=== PATIENT | female | born 1960 | race Hispanic/Latino ===

== ENCOUNTER 2018-06-24 17:57 | Inpatient (IN) | payer OTHER, SELFPAY ==
--- NOTE | 2018-06-24 19:49 | RAD REPORT ---
EXAM DESCRIPTION: US - Abdomen Exam Limited - 06/24/2018 7:24 pm CLINICAL HISTORY: Abdominal pain. COMPARISON: None. FINDINGS: Multiple gallstones. Gallbladder wall mildly thickened The biliary tree is normal caliber. IMPRESSION: Cholelithiasis. Mild gallbladder wall thickening may indicate cholecystitis
[2018-06-24] MEDS ORDERED: ONDANSETRON 4 MG/2 ML VIAL ONE (21:58)
[2018-06-24 22:04] LABS: Absolute Lymphocytes (CBC) 1.7 K/uL (0.7-4.9); Absolute Monocytes 0.4 K/uL (0.1-1.3); Absolute Neutrophil 5.3 K/uL (1.8-8.0); Basophils % 0.7 % (0-1.3); Eosinophils % 0.5 % (0-4.4); Hematocrit 37.5 % (36.0-45.0); Lymphocytes % 22.8 % (15.3-44.8); MPV 8.4 fL (7.6-11.3); RBC Red Blood Cell Count 3.95 M/uL (3.86-4.86)
[2018-06-24 22:11] LABS: Protime INR 1.17
[2018-06-24] MEDS ORDERED: MORPHINE 2 MG/ML SYR ONE (22:23)
[2018-06-24 22:32] LABS: ALT/SGPT 218 U/L (12-78); AST/SGOT 211 U/L (15-37); Albumin 3.9 g/dL (3.4-5.0); Alkaline Phosphatase 347 U/L (45-117); BUN Blood Urea Nitrogen 14 mg/dL (7-18); Bicarbonate 30 mmol/L (21-32); Bilirubin Direct 0.8 mg/dL (0-0.2); Bilirubin Total 1.6 mg/dL (0.2-1.0); Glucose Level 94 mg/dL (74-106); Lipase 2287 U/L (73-393); Magnesium 2.5 mg/dL (1.8-2.4); NT PRO-BNP 27 pg/mL (<125); Potassium 3.6 mmol/L (3.5-5.1); Protein, Total 8.3 g/dL (6.4-8.2); Sodium Level 140 mmol/L (136-145); Troponin (Emerg Dept Use Only) < 0.02 ng/mL (0.0-0.045)
[2018-06-24] MEDS ORDERED: CEFTRIAXONE/SWI 1gm 1 GM/10 ML SYR ONE (23:16)
[2018-06-24] MEDS ORDERED: NA CHLORIDE 0.9% 2,000 ML ONE (23:17)
[2018-06-24] MEDS ORDERED: MORPHINE 4 MG/ML SYR ONE (23:25)
--- NOTE | 2018-06-24 23:43 | EDPHYS ---
Physician Documentation [facility] Name: Quiana Valverde Age: 58 yrs Sex: Female : 1960 Arrival Date: 06/24/2018 Time: 18:01 Bed 27 Private MD: None, None ED Physician Luico Urbina HPI: 06/24 21:45 This 58 yrs old Female presents to ER via Ambulatory with complaints of Chest cp Pain, Abdominal Pain. 21:45 The patient presents with abdominal pain in the epigastric area, in the upper abdomen. cp 21:45 Onset: The symptoms/episode began/occurred 2 day(s) ago. cp 21:45 The symptoms radiate to back and chest. The symptoms are described as sharp, cp waxing/waning. Modifying factors: the symptoms are aggravated by food, pressure. Severity of pain: in the emergency department the pain is unchanged despite home interventions. 21:45 Associated signs and symptoms: Pertinent positives: anorexia, chest pain, nausea, cp vomiting, Pertinent negatives: blood in stools, constipation, diarrhea, dysuria, fever. Historical: - Allergies: 18:22 No Known Allergies; aa5 - Home Meds: 18:22 omeprazole 40 mg Oral cpDR 1 cap once daily [Active]; aa5 - PMHx: 18:22 None; aa5 - PSHx: 18:21 Tubal ligation; Hysterectomy; Bladder suspension; aa5 - Immunization history:: Flu vaccine is not up to date. - Social history:: Smoking status: Patient/guardian denies using tobacco. - Ebola Screening: : No symptoms or risks identified at this time. ROS: 21:50 Constitutional: Negative for body aches, chills, fever, poor PO intake. cp 21:50 Eyes: Negative for injury, pain, redness, and discharge. cp 21:50 Cardiovascular: Positive for chest pain, Negative for edema, palpitations. 21:50 Respiratory: Positive for shortness of breath, Negative for cough, wheezing. 21:50 Abdomen/GI: Positive for abdominal pain, nausea, Negative for diarrhea, constipation, black/tarry stool, rectal bleeding, active vomiting. 21:50 Back: Positive for radiated pain. 21:50 : Negative for urinary symptoms. 21:50 Skin: Negative for cellulitis, rash. 21:50 Neuro: Negative for altered mental status, headache, weakness. 21:50 All other systems are negative. Exam: 22:00 Constitutional: The patient appears in no acute distress, alert, awake, cp non-diaphoretic, non-toxic, well developed, well nourished, obese. 22:00 Head/Face: Normocephalic, atraumatic. Eyes: Pupils equal round and reactive to light, cp extra-ocular motions intact. Lids and lashes normal. Conjunctiva and sclera are non-icteric and not injected. Cornea within normal limits. Periorbital areas with no swelling, redness, or edema. ENT: Nares patent. No nasal discharge, no septal abnormalities noted. Tympanic membranes are normal and external auditory canals are clear. Oropharynx with no redness, swelling, or masses, exudates, or evidence of obstruction, uvula midline. Mucous membranes moist. Chest/axilla: Normal chest wall appearance and motion. Nontender with no deformity. No lesions are appreciated. Cardiovascular: Regular rate and rhythm with a normal S1 and S2. No gallops, murmurs, or rubs. Normal PMI, no JVD. No pulse deficits. Respiratory: Lungs have equal breath sounds bilaterally, clear to auscultation and percussion. No rales, rhonchi or wheezes noted. No increased work of breathing, no retractions or nasal flaring. 22:00 Abdomen/GI: Inspection: abdomen appears normal, Bowel sounds: active, all quadrants, Palpation: soft, in all quadrants, moderate abdominal tenderness, in the epigastric area and right upper quadrant, rebound tenderness, is not appreciated, voluntary guarding, is elicited in the epigastric area and right upper quadrant, involuntary guarding, is not appreciated. 22:00 Back: pain, that is moderate, of the mid back area, ROM is normal. 22:00 Skin: no rash present. Vital Signs: 18:22 BP 126 / 67; Pulse 80; Resp 18 S; Temp 98.1(TE); Pulse Ox 98% on R/A; Weight 88.45 kg aa5 (R); Height 5 ft. 1 in. (154.94 cm) (R); Pain 10/10; 21:30 BP 152 / 87 LA; Pulse 79; Resp 17 S; Pulse Ox 100% on R/A; rv 22:00 BP 139 / 77 LA; Pulse 78; Resp 15 S; Pulse Ox 100% on R/A; rv 22:30 BP 138 / 75 RA; Pulse 68; Resp 16 S; Pulse Ox 100% on R/A; rv 23:00 BP 152 / 69 RA; Pulse 78; Resp 17 S; Pulse Ox 100% on R/A; rv 06/25 00:00 BP 153 / 96 RA; Pulse 69; Resp 16 S; Pulse Ox 100% on R/A; rv 00:30 BP 146 / 76 RA; Pulse 65; Resp 16 S; Pulse Ox 100% on R/A; rv 06/24 18:22 Body Mass Index 36.84 (88.45 kg, 154.94 cm) aa5 MDM: 06/24 21:31 Patient medically screened. cp 22:00 Differential diagnosis: cholecystitis, Cholelithiasis, diverticulitis, gastritis, cp gastroesophageal reflux disease, pancreatitis, Peptic Ulcer Disease, Perf. Duodenal Ulcer, Perf. Gastric Ulcer, Pyelonephritis. 23:15 Data reviewed: vital signs, nurses notes, lab test result(s), EKG, radiologic studies, cp plain films, ultrasound, and as a result, I will admit patient. 23:15 Test interpretation: by ED physician or midlevel provider: ECG, plain radiologic cp studies. 23:16 Physician consultation: Lucio Peguero MD was called at 23:16, was contacted at 23:16, regarding consult, patient's condition, and will see patient tomorrow. 23:45 Physician consultation: Mitzi Danielson MD regarding admission, to the medical/surgical cp unit. patient's condition. 06/24 21:40 Order name: Basic Metabolic Panel; Complete Time: 22:45 cp 06/24 22:45 Interpretation: Normal except: GFR 71. cp 06/24 21:40 Order name: CBC with Diff; Complete Time: 22:45 cp 06/24 22:46 Interpretation: Reviewed. cp 06/24 21:40 Order name: LFT's; Complete Time: 22:45 cp 06/24 22:45 Interpretation: Normal except: AST 211; ALT 218; ALK 347; BILIT 1.6; BILID 0.8; TP 8.3; cp GLOB 4.4; A/G 0.9. 06/24 21:40 Order name: Magnesium; Complete Time: 22:45 cp 06/24 21:40 Order name: NT PRO-BNP; Complete Time: 22:45 cp 06/24 21:40 Order name: PT-INR; Complete Time: 22:45 cp 06/24 23:32 Interpretation: PT 13.7; Reviewed. cp 06/24 19:03 Order name: US Abdomen Limited; Complete Time: 21:31 snw 06/24 21:40 Order name: Troponin (emerg Dept Use Only); Complete Time: 22:45 cp 06/24 21:40 Order name: XRAY Chest (1 view) cp 06/24 21:40 Order name: Lipase; Complete Time: 22:45 cp 06/24 22:46 Interpretation: Abnormal: LIP 2287. cp 06/24 21:53 Order name: CT Abd/Pelvis - W/Contrast: no oral contrast cp 06/24 19:03 Order name: EKG; Complete Time: 19:04 snw 06/24 19:03 Order name: EKG - Nurse/Tech; Complete Time: 21:33 snw 06/24 21:40 Order name: Cardiac monitoring; Complete Time: 22:01 cp 06/24 21:40 Order name: IV Saline Lock; Complete Time: 22:00 cp 06/24 21:40 Order name: Labs collected and sent; Complete Time: 22:00 cp 06/24 21:40 Order name: O2 Per Protocol; Complete Time: 22:00 cp 06/24 21:40 Order name: O2 Sat Monitoring; Complete Time: 22:01 cp 06/25 00:48 Order name: NPO; Complete Time: 00:54 cp Administered Medications: 22:14 Drug: morphine 2 mg Route: IVP; Site: left antecubital; rv 22:39 Follow up: Response: Pain is decreased rv 22:15 Drug: Zofran 4 mg Route: IVP; Site: left antecubital; rv 22:39 Follow up: Response: Nausea is decreased rv 23:09 Drug: Rocephin - (cefTRIAXone) 1 grams Route: IVPB; Infused Over: 30 mins; Site: left rv antecubital; 06/25 00:55 Follow up: IV Status: Completed infusion rv 06/24 23:09 Drug: NS 0.9% 1000 ml Route: IV; Rate: 1 bolus; Site: left antecubital; rv 06/25 00:54 Follow up: IV Status: Completed infusion rv 06/24 23:30 Drug: morphine 4 mg Route: IVP; Site: left antecubital; rv 04 00:56 Follow up: Response: Pain is decreased rv 00:00 Drug: metroNIDAZOLE 500 mg Volume: 100 ml; Route: IVPB; Infused Over: 30 mins; Site: rv left antecubital; 00:57 Follow up: IV Status: Infusion continued upon admission rv 00:54 Drug: NS 0.9% 1000 ml Route: IV; Rate: 125 ml/hr; Site: left antecubital; rv 00:56 Follow up: IV Status: Infusion continued upon admission rv 01:01 Drug: Cipro 400 mg Volume: 200 ml; Route: IVPB; Infused Over: 60 mins; Site: left rv antecubital; 01:02 Follow up: IV Status: Infusion continued upon admission rv Disposition: 06/24/18 23:43 Hospitalization ordered by Mitzi Danielson for Inpatient Admission. Preliminary diagnosis are Cholecystitis, Acute pancreatitis. - Bed requested for Telemetry/MedSurg (Inpatient). - Status is Inpatient Admission. rv - Condition is Stable. - Problem is new. - Symptoms have improved. UTI on Admission? No Addendum: 06/26/2018 11:40 Co-signature as Attending Physician, Lucio Urbina MD I agree with the assessment and w a plan of care. Signatures: Dispatcher [employer] EDMS Karime Lizarraga, PEARL-C TECHNICAL PRODUCT MANAGER-Csnw Lis Jaramillo RN RN aa5 Jarad Ernandez PA PA Prema Salazar RN RN Lucio Urbina MD MD nc Bart Howard RN RN rv Corrections: (The following items were deleted from the chart) 06/25 00:24 04 23:43 Hospitalization Ordered by Mitzi Danielson MD for Inpatient Admission. cg Preliminary diagnosis is Cholecystitis; Acute pancreatitis. Bed requested for Telemetry/MedSurg (Inpatient). Status is Inpatient Admission. Condition is Stable. Problem is new. Symptoms have improved. UTI on Admission? No. cp 06/25 01:04 00:24 06/24/2018 23:43 Hospitalization Ordered by Mitzi Danielson MD for Inpatient rv Admission. Preliminary diagnosis is Cholecystitis; Acute pancreatitis. Bed requested for Telemetry/MedSurg (Inpatient). Status is Inpatient Admission. Condition is Stable. Problem is new. Symptoms have improved. UTI on Admission? No. cg 22:59 06/24 21:45 Associated signs and symptoms: Pertinent positives: anorexia, nausea, cp Pertinent negatives: blood in stools, diarrhea, dysuria, fever, vomiting, cp
--- NOTE | 2018-06-24 23:43 | ER ---
Nurse's Notes [facility] Name: Quiana Valverde Age: 58 yrs Sex: Female : 1960 Arrival Date: 06/24/2018 Time: 18:01 Bed 27 Private MD: None, None Diagnosis: Cholecystitis;Acute pancreatitis Presentation: 06/24 18:20 Presenting complaint: Patient states: upper abd pain and chest pain that began on aa5 Friday, pt reports pain has been constant. Reports intermittent SOB. Denies nausea, reports vomiting. Transition of care: patient was not received from another setting of care. Onset of symptoms was June 2018. Risk Assessment: Do you want to hurt yourself or someone else? Patient reports no desire to harm self or others. Initial Sepsis Screen: Does the patient meet any 2 criteria? No. Patient's initial sepsis screen is negative. Does the patient have a suspected source of infection? No. Patient's initial sepsis screen is negative. Care prior to arrival: None. 18:20 Method Of Arrival: Ambulatory aa5 18:20 Acuity: PASTORA 3 aa5 Historical: - Allergies: 18:22 No Known Allergies; aa5 - Home Meds: 18:22 omeprazole 40 mg Oral cpDR 1 cap once daily [Active]; aa5 - PMHx: 18:22 None; aa5 - PSHx: 18:21 Tubal ligation; Hysterectomy; Bladder suspension; aa5 - Immunization history:: Flu vaccine is not up to date. - Social history:: Smoking status: Patient/guardian denies using tobacco. - Ebola Screening: : No symptoms or risks identified at this time. Screenin:03 Abuse screen: Denies threats or abuse. Denies injuries from another. Nutritional rv screening: No deficits noted. Tuberculosis screening: No symptoms or risk factors identified. Fall Risk None identified. Assessment: 22:02 General: Appears in no apparent distress. uncomfortable, Behavior is calm, cooperative. rv Pain: Complains of pain in abdomen Pain does not radiate. Pain began 1 day ago. Neuro: Level of Consciousness is awake, alert, obeys commands, Oriented to person, place, time, situation. Cardiovascular: Capillary refill < 3 seconds. Respiratory: Airway is patent. GI: Reports lower abdominal pain. : No signs and/or symptoms were reported regarding the genitourinary system. EENT: No signs and/or symptoms were reported regarding the EENT system. Derm: Skin is intact. Musculoskeletal: No signs and/or symptoms reported regarding the musculoskeletal system. 22:40 Reassessment: Patient appears in no apparent distress at this time. Patient and/or rv family updated on plan of care and expected duration. Pain level reassessed. Patient is alert, oriented x 3, equal unlabored respirations, skin warm/dry/pink. Patient states feeling better. Patient states symptoms have improved. Vital Signs: 18:22 BP 126 / 67; Pulse 80; Resp 18 S; Temp 98.1(TE); Pulse Ox 98% on R/A; Weight 88.45 kg aa5 (R); Height 5 ft. 1 in. (154.94 cm) (R); Pain 10/10; 21:30 BP 152 / 87 LA; Pulse 79; Resp 17 S; Pulse Ox 100% on R/A; rv 22:00 BP 139 / 77 LA; Pulse 78; Resp 15 S; Pulse Ox 100% on R/A; rv 22:30 BP 138 / 75 RA; Pulse 68; Resp 16 S; Pulse Ox 100% on R/A; rv 23:00 BP 152 / 69 RA; Pulse 78; Resp 17 S; Pulse Ox 100% on R/A; rv 0404 00:00 BP 153 / 96 RA; Pulse 69; Resp 16 S; Pulse Ox 100% on R/A; rv 00:30 BP 146 / 76 RA; Pulse 65; Resp 16 S; Pulse Ox 100% on R/A; rv 0403 18:22 Body Mass Index 36.84 (88.45 kg, 154.94 cm) aa5 ED Course: 03 18:01 Patient arrived in ED. mr 18:01 None, None is Private Physician. mr 18:20 Triage completed. aa5 18:20 Arm band placed on. aa5 18:29 EKG done, by ED staff, reviewed by Jarad ROMAN. jp3 19:24 US Abdomen Limited In Process Unspecified. EDMS 19:31 Ultrasound completed. Patient tolerated well. cy 19:31 Patient moved back from ultrasound. cy 21:30 Warm blanket given. Pulse ox on. NIBP on. jp3 21:30 Bed in low position. Call light in reach. Side rails up X 1. Side rails up X2. jp3 21:31 [facility] Ernandez [facility]. cp 21:31 Lucio Urbina MD is Attending Physician. cp 21:50 Inserted saline lock: 22 gauge in left antecubital area, using aseptic technique. Blood jp3 collected. 21:50 Initial lab(s) drawn, by me, sent to lab. jp3 21:58 Radiology exam delayed due to lab results not completed at this time. (BUN/Creatinine) nj IV insertion attempt and/or patient not having appropriate IV at this time. 22:00 Lipase Sent. jp3 22:00 Basic Metabolic Panel Sent. jp3 22:00 CBC with Diff Sent. jp3 22:00 LFT's Sent. jp3 22:00 Magnesium Sent. jp3 22:00 NT PRO-BNP Sent. jp3 22:00 PT-INR Sent. jp3 22:00 Troponin (emerg Dept Use Only) Sent. jp3 22:03 Patient maintains SpO2 saturation greater than 95% on room air. rv 22:12 X-ray completed. Portable x-ray completed in exam room. Patient tolerated procedure az well. 22:12 Radiology exam delayed due to lab results not completed at this time. (BUN/Creatinine). vm2 22:14 XRAY Chest (1 view) In Process Unspecified. EDMS 22:55 CT completed. Patient tolerated procedure well. Patient moved to CT via wheelchair. nm Patient moved back from CT. 23:06 CT Abd/Pelvis - W/Contrast: no oral contrast In Process Unspecified. EDMS 23:42 Mitzi Danielson MD is Hospitalizing Provider. 06/25 01:00 No provider procedures requiring assistance completed. Patient admitted, IV remains in rv place. intact. Administered Medications: 06/24 22:14 Drug: morphine 2 mg Route: IVP; Site: left antecubital; rv 22:39 Follow up: Response: Pain is decreased rv 22:15 Drug: Zofran 4 mg Route: IVP; Site: left antecubital; rv 22:39 Follow up: Response: Nausea is decreased rv 23:09 Drug: Rocephin - (cefTRIAXone) 1 grams Route: IVPB; Infused Over: 30 mins; Site: left rv antecubital; 06/25 00:55 Follow up: IV Status: Completed infusion rv 06/24 23:09 Drug: NS 0.9% 1000 ml Route: IV; Rate: 1 bolus; Site: left antecubital; rv 06/25 00:54 Follow up: IV Status: Completed infusion rv 06/24 23:30 Drug: morphine 4 mg Route: IVP; Site: left antecubital; rv 06/25 00:56 Follow up: Response: Pain is decreased rv 00:00 Drug: metroNIDAZOLE 500 mg Volume: 100 ml; Route: IVPB; Infused Over: 30 mins; Site: rv left antecubital; 00:57 Follow up: IV Status: Infusion continued upon admission rv 00:54 Drug: NS 0.9% 1000 ml Route: IV; Rate: 125 ml/hr; Site: left antecubital; rv 00:56 Follow up: IV Status: Infusion continued upon admission rv 01:01 Drug: Cipro 400 mg Volume: 200 ml; Route: IVPB; Infused Over: 60 mins; Site: left rv antecubital; 01:02 Follow up: IV Status: Infusion continued upon admission rv Outcome: 06/24 23:43 Decision to Hospitalize by Provider. cp 06/25 01:01 Admitted to Tele accompanied by nurse, via wheelchair, room 405, Report called to rv crystal Condition: good Instructed on the need for admit. 01:04 Patient left the ED. rv Signatures: Dispatcher [employer] Helena Altamirano JaramilloLis moreno, RN RN aa5 Jarad Ernandez PA PA Sriram Santoyo Victoria Jose M Austin Ronaldo, RN RN rv Tao Bedoya jp3 Roxanne Rosenberg
[2018-06-25] MEDS ORDERED: CIPROFLOXACIN 400mg IV 400 MG/200 ML BAG IV ONE (00:03)
[2018-06-25] MEDS ORDERED: METRONIDAZOLE 500mg IVPB 500 MG/100 ML BAG IV ONE (00:04)
--- NOTE | 2018-06-25 00:17 | P.HP ---
Certification for Inpatient Patient admitted to: Inpatient With expected LOS: >2 Midnights Practitioner: I am a practitioner with admitting privileges, knowledge of patient current condition, hospital course, and medical plan of care. Services: Services provided to patient in accordance with Admission requirements found in Title 42 Section 412.3 of the Code of Federal Regulations Patient History Date of Service: 06/25/18 Reason for admission: gallstone cholecystitis, pancreatitis History of Present Illness: Ms Valverde is a 58 years old woman with history of of GERD, known to have cholelithiasis who start with abdominal pain 3 days ago. She describe the pain as constant, epigastric radiated to RUQ, LUQ and chest. She has had vomiting as well. No diarrhea, fever or chills. Lab work remarkable for abnormal liver enzymes, elevated bilirubin, lipase and alk phos. WBC count normal. Abdominal US shows multiple gallstones with signs of cholecystitis, ducts with normal caliber. CT abd/pelvis pending report. Allergies No Known Drug Allergies Allergy (Verified 03/14/16 11:15) Unknown No Known Allergies Allergy (Uncoded 08/16/16 20:28) Unknown Home medications list reviewed: Yes Home Medications: Codeine/APAP [Tylenol W/Codeine #3 tab] 1 tab PO Q6HP PRN #20 tab 03/15/16 - Past Medical/Surgical History Diabetic: No -: GERD -: Cholelitiasis -: tubal ligation 1991 -: hysterectomy -: bladder suspension - Family History Mother -: Hypertension, Diabetes, Stroke, Kidney disease - Social History Smoking Status: Never smoker Alcohol use: No CD- Drugs: No Caffeine use: Yes Place of Residence: Home Review of Systems 10-point ROS is otherwise unremarkable Physical Examination - Physical Exam General: Alert, In no apparent distress HEENT: Atraumatic, PERRLA, Mucous membr. moist/pink, EOMI, Sclerae nonicteric Neck: Supple, 2+ carotid pulse no bruit, No LAD, Without JVD or thyroid abnormality Respiratory: Clear to auscultation bilaterally, Normal air movement Cardiovascular: Regular rate/rhythm, Normal S1 S2 Gastrointestinal: Normal bowel sounds, Tenderness (RUQ tenderness to palpation) Musculoskeletal: No tenderness Integumentary: No rashes Neurological: Normal speech, Normal strength at 5/5 x4 extr, Normal tone, Normal affect Lymphatics: No axilla or inguinal lymphadenopathy - Studies Laboratory Data (last 24 hrs) 06/24/18 21:50: PT 13.7 H, INR 1.17 06/24/18 21:50: WBC 7.4, Hgb 12.6, Hct 37.5, Plt Count 248 06/24/18 21:50: Sodium 140, Potassium 3.6, BUN 14, Creatinine 0.83, Glucose 94, Magnesium 2.5 H, Total Bilirubin 1.6 H, AST 211 H, ALT 218 H, Alkaline Phosphatase 347 H, Lipase 2287 H Assessment and Plan - Problems (Diagnosis) (1) Cholecystitis Current Visit: Yes Status: Acute (2) Cholelithiasis Current Visit: Yes Status: Acute Qualifiers: Cholelithiasis location: gallbladder Cholecystitis acuity: acute Biliary obstruction: without biliary obstruction (3) Pancreatitis Current Visit: Yes Status: Acute Qualifiers: Chronicity: acute Pancreatitis type: biliary Acute pancreatitis complication: unspecified Qualified Code(s): K85.10 - Biliary acute pancreatitis without necrosis or infection - Plan Will admit the patient due to gallstone collecystitis, pancreatitis. Will start empiric antibiotic treatment, Keep NPO, IV fluids, symptomatic medication for pain, consult surgery and GI team. - Advance Directives Does patient have a Living Will: No Does patient have a Durable POA for Healthcare: No - Code Status/Comfort Care Code Status Assessed: Yes Code Status: Full Code
[2018-06-25] MEDS ORDERED: METRONIDAZOLE 500mg IVPB 500 MG/100 ML BAG IV SCH (01:10)
[2018-06-25] MEDS ORDERED: SODIUM CHLORIDE 0.9% 10ML INJ IV PRN (01:10)
[2018-06-25] MEDS ORDERED: ACETAMINOPHEN 500 MG TAB PO PRN (01:10)
[2018-06-25 01:31] VITALS: BMI 34.9
[2018-06-25] MEDS: NA CHLORIDE 0.9% 1,000 ML IV SCH ×3 (02:22→20:04)
[2018-06-25 03:34] LABS: Urine Appearance CLEAR; Urine Bilirubin NEGATIVE (NEG); Urine Blood TRACE (NEG); Urine Color DK YELLOW; Urine Glucose NEGATIVE (NEG); Urine Protein NEGATIVE (NEG); Urine Specific Gravity >=1.030 (1.005-1.030); Urine Urobilinogen 0.2 mg/dL (0.2-1.0)
[2018-06-25 03:39] LABS: Urine Microscopic Reflex ORDER UMIC
[2018-06-25] MEDS: ONDANSETRON 4 MG/2 ML VIAL IV PRN ×3 (03:50→18:49)
[2018-06-25] MEDS: KETOROLAC 30 MG/ML INJ IV PRN ×3 (03:50→20:05)
[2018-06-25 05:01] LABS: Urine Bacteria <20 /HPF (<20); Urine Culture Reflex Order NOT NEEDED; Urine RBC <5 /HPF (NONE SEEN)
[2018-06-25] MEDS ORDERED: KCL 20 MEQ/100 mL IVPB 20 MEQ/100 ML BAG IV SCH (06:00)
--- NOTE | 2018-06-25 08:25 | RAD REPORT ---
EXAM DESCRIPTION: RAD - Chest Single View - 06/24/2018 10:14 pm CLINICAL HISTORY: Abdominal pain, chest pain COMPARISON: July 2016 TECHNIQUE: AP portable chest image was obtained 2211 hours . FINDINGS: Lungs are clear. Heart and vasculature are normal. No measurable pleural effusion and no p neumothorax. No acute bony abnormality seen. No acute aortic findings suspected. IMPRESSION: No acute cardiopulmonary process. No significant interval change.
[2018-06-25] MEDS: METRONIDAZOLE 500mg IVPB 500 MG/100 ML BAG IV SCH ×3 (09:47→23:21)
[2018-06-25] MEDS: PANTOPRAZOLE 40 MG INJ IVP SCH (09:47)
--- NOTE | 2018-06-25 10:55 | RAD REPORT ---
EXAM DESCRIPTION: CT - Abdomen Pelvis W Contrast - 06/25/2018 5:34 am CLINICAL HISTORY: 58 years Female, ABD PAIN COMPARISON: None. TECHNIQUE: 5 mm axial images of the abdomen and pelvis were obtained with intravenous contrast. 3 mm coronal and sagittal reformatted images were obtained. This exam was performed according to our depa mental dose-optimization program, which includes automated exposure control, adjustment of the mA a nd/or kV according to patient size and/or use of iterative reconstruction technique. INTRAVENOUS CONTRAST: Not documented. Please refer to medical record. FINDINGS: Lung bases: There are no active infiltrates. There is a small sliding-type hiatal hernia. Liver: There is diffuse fatty liver infiltration.. Spleen: Normal. Pancreas: Normal. Gallbladder: There is mild gallbladder distention with evidence of cholelithiasis. There is mild wall thickening and pericholecystic fluid.. A gallbladder ultrasound recommended to assess for potential cholecystitis. Right adrenal gland: Normal. Left adrenal gland: Normal. Right kidney: Normal. Left kidney: There is a parapelvic cyst in the lower pole measuring 3.5 x 1.5 cm. There is mild uroth elial enhancement within the at the UPJ. Findings raise a possibility of urinary tract infection. Retroperitoneal structures: Normal. Bowel survey: There is mild gaseous distention of the transverse colon and multiple small bowel loops suggestive of a mild generalized ileus. The appendix is unremarkable. The distal ileum is unremarkab le. Urinary bladder: Normal. Uterus and adnexa: Absent.. Peritoneal cavity: There is a very small amount of free fluid in the posterior pelvic cul-de-sac. Mesentery structures: Normal. Abdominal wall: There is a tiny umbilical hernia containing fat. There is a tiny midline ventral meryl ia raising 2.5 cm inferior to the umbilicus containing fat.. Bony structures: No suspicious lesions. IMPRESSION: 1. Questionable cholecystitis. Gallbladder ultrasound recommended. 2. Mild generalized ileus. 3. Questionable urinary tract infection in the left UPJ. 4. Small hiatal hernia. 5. Diffuse fatty liver infiltration. Electronically signed by: Molina Mchugh MD 06/24/2018 11:23 PM CDT Due to temporary technical issues with the PACS/Fluency reporting system, reports are being signed by the in house radiologist as a courtesy to ensure prompt reporting. The interpreting radiologist is f ully responsible for the content of the report.
[2018-06-25] MEDS: CIPROFLOXACIN 400mg IV 400 MG/200 ML BAG IV SCH ×2 (12:37→23:20)
[2018-06-25 12:49] LABS: ALT/SGPT 135 U/L (12-78); AST/SGOT 95 U/L (15-37); Alkaline Phosphatase 262 U/L (45-117); BUN Blood Urea Nitrogen 13 mg/dL (7-18); Bicarbonate 29 mmol/L (21-32); Bilirubin Total 0.9 mg/dL (0.2-1.0); Glucose Level 80 mg/dL (74-106); Lipase 219 U/L (73-393); Magnesium 2.2 mg/dL (1.8-2.4); Potassium 4.2 mmol/L (3.5-5.1); Protein, Total 6.7 g/dL (6.4-8.2); Sodium Level 142 mmol/L (136-145)
--- NOTE | 2018-06-25 12:53 | P.PN ---
Subjective Date of Service: 06/25/18 Primary Care Provider: Dr. Power Chief Complaint: gallstone cholecystitis, pancreatitis Subjective: Other (Abdominal pain improved.) Physical Examination - Vital Signs Temperature: 97.1 F Blood Pressure: 116/53 Pulse: 59 Respirations: 18 Pulse Ox (%): 99 - Physical Exam General: Alert, In no apparent distress, Oriented x3, Cooperative HEENT: Atraumatic Neck: Supple Respiratory: Clear to auscultation bilaterally, Normal air movement Cardiovascular: Normal pulses, Regular rate/rhythm Gastrointestinal: Normal bowel sounds, Soft and benign, Non-distended, Tenderness (Improved pain to the right upper quadrant) Neurological: Normal speech, Normal strength at 5/5 x4 extr, Normal tone, Normal affect - Studies Laboratory Data (last 24 hrs) 06/24/18 21:50: PT 13.7 H, INR 1.17 06/24/18 21:50: WBC 7.4, Hgb 12.6, Hct 37.5, Plt Count 248 06/24/18 21:50: Sodium 140, Potassium 3.6, BUN 14, Creatinine 0.83, Glucose 94, Magnesium 2.5 H, Total Bilirubin 1.6 H, AST 211 H, ALT 218 H, Alkaline Phosphatase 347 H, Lipase 2287 H Medications List Reviewed: Yes Assessment & Plan Discharge Plan: Home Plan to discharge in: 72 Hours Physician Review Additional Text: Impression: Abdominal pain secondary to gallstone pancreatitis with cholelithiasis and cholecystitis with elevated liver function GERD with hiatal hernia Fatty liver Obesity, BMI 34 Plan: Abdominal pain secondary to gallstone pancreatitis with cholelithiasis and cholecystitis with elevated liver function: Continue with IV fluids and antibiotic therapy. Case discussed with GI and surgery. Patient will have MRCP to rule out choledocholithiasis. Will continue with IV pain medication. Await MRCP results. Patient may require an ERCP. If MRCP negative, surgery will be planned for tomorrow. Will continue to monitor reassess. Monitor lab closely. Will continue with DVT prophylaxis. GERD with hiatal hernia: Will continue with medication. Fatty liver: Will provide education. This can be further addressed by GI as an outpatient. Obesity, BMI 34: Will address lifestyle modification education. Time Spent Managing Pts Care (In Minutes): 55
--- NOTE | 2018-06-25 13:00 | P.CNS ---
Date of Consult: 06/25/18 This patient presented to the emergency room with severe abdominal pain for diagnosis and treatment. Was found have gallstone pancreatitis. She has been NPO but is scheduled now for an MRCP. Will await those results to determine surgical plan.
--- NOTE | 2018-06-25 14:57 | RAD REPORT ---
EXAM DESCRIPTION: MRI - Cholangiogram - 06/25/2018 2:48 pm CLINICAL HISTORY: Gallstone pancreatitis, abdominal pain COMPARISON: CT study June 24, 2018, ultrasound June 24 TECHNIQUE: Axial and coronal heavily T2 weighted sequences were obtained. Coronal T2 HASTE fat satur ation static and coronal multiplane reconstruction imaging generated and reviewed. Horizontal and gracilea tical axis rotational views obtained using maximum intensity projection (MIP) protocol. FINDINGS: Numerous small gallstones are identifiable. Gallbladder wall is mildly thickened. No bilia ry tree dilatation. No duct stone, stricture or mass. No dilation of the pancreatic duct. IMPRESSION: Cholelithiasis with gallbladder wall thickening. Negative exam of the biliary tree.
[2018-06-25] MEDS: ENOXAPARIN 40 MG/0.4 ML SQ SCH (16:51)
[2018-06-26 06:04] LABS: Absolute Lymphocytes (CBC) 1.6 K/uL (0.7-4.9); Absolute Monocytes 0.4 K/uL (0.1-1.3); Absolute Neutrophil 4.2 K/uL (1.8-8.0); Basophils % 0.6 % (0-1.3); Eosinophils % 1.3 % (0-4.4); Hematocrit 31.2 % (36.0-45.0); Lymphocytes % 25.5 % (15.3-44.8); MPV 8.8 fL (7.6-11.3); RBC Red Blood Cell Count 3.28 M/uL (3.86-4.86)
[2018-06-26 06:10] LABS: ALT/SGPT 101 U/L (12-78); AST/SGOT 56 U/L (15-37); Albumin 2.9 g/dL (3.4-5.0); Alkaline Phosphatase 241 U/L (45-117); BUN Blood Urea Nitrogen 9 mg/dL (7-18); Bicarbonate 26 mmol/L (21-32); Bilirubin Total 0.8 mg/dL (0.2-1.0); Glucose Level 69 mg/dL (74-106); Lipase 74 U/L (73-393); Potassium 4.3 mmol/L (3.5-5.1); Protein, Total 6.6 g/dL (6.4-8.2); Sodium Level 141 mmol/L (136-145)
[2018-06-26] MEDS: NA CHLORIDE 0.9% 1,000 ML IV SCH ×3 (06:36→17:10)
[2018-06-26] MEDS: METRONIDAZOLE 500mg IVPB 500 MG/100 ML BAG IV SCH ×3 (08:21→23:42)
[2018-06-26] MEDS: PANTOPRAZOLE 40 MG INJ IVP SCH (08:22)
[2018-06-26] MEDS: CIPROFLOXACIN 400mg IV 400 MG/200 ML BAG IV SCH ×2 (11:00→23:42)
[2018-06-26] MEDS: KETOROLAC 30 MG/ML INJ IV PRN (11:58)
[2018-06-26] MEDS ORDERED: Ringers Lactate 1,000 ML IV ONE ×2 (12:23→15:05)
[2018-06-26] MEDS ORDERED: LIDOCAINE 1% MPF 5 ML VIAL ONE (12:25)
[2018-06-26] MEDS ORDERED: MIDAZOLAM HCL 2 MG/2 ML INJ ONE (12:25)
[2018-06-26] MEDS ORDERED: FENTANYL CITR 100 MCG/2 ML ONE ×2 (12:25→13:42)
[2018-06-26] MEDS ORDERED: PROPOFOL 200 MG/20 ML VIAL IV ONE (12:25)
[2018-06-26] MEDS ORDERED: ROCURONIUM 50 MG/5 ML VIAL IV ONE (12:26)
[2018-06-26] MEDS ORDERED: BUPIVACAINE 0.5% PF 10 ML VIAL ONE (12:41)
[2018-06-26] MEDS ORDERED: GLYCOPYRROLATE 0.2 MG/ML SYR ONE (14:18)
[2018-06-26] MEDS ORDERED: KETOROLAC 30 MG/ML INJ ONE (14:18)
[2018-06-26] MEDS ORDERED: ONDANSETRON 4 MG/2 ML VIAL ONE (14:22)
[2018-06-26] MEDS ORDERED: NEOSTIGMINE 1 MG/ML -10 ML VIAL ONE (14:22)
[2018-06-26] MEDS: HYDROMORPHONE HCL 2 MG/ML inj ONE ×3 (14:33→14:50)
--- NOTE | 2018-06-26 14:37 | P.PN ---
Subjective Date of Service: 06/26/18 Primary Care Provider: Dr. Power Chief Complaint: gallstone cholecystitis, pancreatitis Subjective: Other (Patient stable. Patient NPO for surgery.) Physical Examination - Vital Signs Temperature: 98.0 F Blood Pressure: 100/76 Pulse: 69 Respirations: 16 Pulse Ox (%): 96 - Physical Exam General: Alert, In no apparent distress, Oriented x3, Cooperative HEENT: Atraumatic Neck: Supple Respiratory: Clear to auscultation bilaterally Cardiovascular: Normal pulses, Regular rate/rhythm Gastrointestinal: Normal bowel sounds, Soft and benign, Non-distended, Tenderness (Mild pain to right upper quadrant) Neurological: Normal speech, Normal strength at 5/5 x4 extr, Normal tone, Normal affect - Studies Medications List Reviewed: Yes Assessment & Plan Discharge Plan: Home Plan to discharge in: 24 Hours Physician Review Additional Text: Impression: Abdominal pain secondary to gallstone pancreatitis with cholelithiasis and cholecystitis with elevated liver function GERD with hiatal hernia Fatty liver Obesity, BMI 34 Plan: Abdominal pain secondary to gallstone pancreatitis with cholelithiasis and cholecystitis with elevated liver function: MRCP negative. Continue IV antibiotic therapy and fluids. Patient NPO for surgery. Case discussed with GI and surgery yesterday. Anticipate laparoscopic cholecystectomy today. Possible discharge as early as today or tomorrow if tolerating diet. Improvement in lab noted. Continue monitor closely. Continue DVT prophylaxis. GERD with hiatal hernia: Will continue with medication. Fatty liver: Will continue to provide education. This can be further addressed by GI as an outpatient. Obesity, BMI 34: Will continue to address lifestyle modification education. Time Spent Managing Pts Care (In Minutes): 55
--- NOTE | 2018-06-26 14:45 | P.OP ---
Preoperative diagnosis: Cholecystitis with cholelithiasis Postoperative diagnosis: The same Primary procedure: Laparoscopic cholecystectomy Secondary procedure: Cholangiogram Anesthesia: General Estimated blood loss: Less than 10 cc Specimen: In gallbladder and contents Operative Technique: The patient brought the operating room and placed supine on the table. After the induction of adequate general endotracheal anesthesia, there the abdomen was prepped with a DuraPrep solution, and she was draped in usual aseptic manner. A subumbilical incision was made. This is brought down through the skin and subcutaneous tissue. The Visiport was now used to enter the peritoneal cavity and created pneumoperitoneum to approximately 12 mm of mercury. Under direct vision a 5 mm trocar was placed in the upper midline, and 2 other 5s on the right lateral side of the abdomen. We were able to visualize the right upper quadrant could see an edematous gallbladder under the liver. The patient was placed in reverse Trendelenburg and rolled to the left. We were able to place a for grasper on the body of the gallbladder. Another 1 was placed by Gerard's pouch. Applying lateral traction we were able to dissect and expose the cystic duct and the cystic artery. Having obtained the critical view a clip was placed between the gallbladder and the cystic duct. An opening was made into this area through which we obtained a cholangiogram the initial cholangiogram showed contrast going into the duodenum however it was felt that may possibly be a filling defect seen we flushed the catheter desire's times with normal saline we finally obtained a cholangiogram that showed good flow of contrast into the duodenum with no filling defects noted. The cholangiocath was also able to be passed down into the duodenum without any hang after deflating. The catheter was removed at this point. Clips were placed on the distal portion of the cystic duct. The cystic duct was now fully transected. The cystic artery was clipped and divided in the usual way. The gallbladder was now dissected free from the liver bed, placed into an Endo-Catch, and brought out through the umbilical trocar site. At this point attention was turned towards right upper quadrant. The liver bed was inspected to ensure adequate hemostasis. The irrigating fluid was aspirated from the peritoneal cavity after having put the patient back in the neutral position on the OR table. The umbilical trocar site was also approximated using the Endo Close an absorbable stitch. At this point the pneumoperitoneum was collapsed, the suture tied, and the trocars removed. Larry were then applied to the skin. At the end of the procedure she was in a stable condition when sent to the recovery room. Needle sponge instrument count were correct. No drains were placed. Complications: None Transferred to: Recovery Room Condition: Good
[2018-06-26] MEDS ORDERED: MORPHINE 4 MG/ML SYR IV PRN (14:53)
[2018-06-26] MEDS ORDERED: PROMETHAZINE 25 MG/ML VIAL ONE (14:55)
--- NOTE | 2018-06-26 15:21 | RAD REPORT ---
EXAM DESCRIPTION: RADCholangiogram Oper-Xray Or06/26/2018 3:12 pm CLINICAL HISTORY: Abdominal pain FINDINGS: The examination was performed by Dr. Lyman. The cystic duct was cannulated and contrast administered. Contrast flowed into the duodenum. Small filling defects within the common bile duct may indicate sto rachell. Sixteen fluoroscopic spot series obtained. Fluoroscopy time 1 minutes
[2018-06-26 15:33] VITALS: O2SAT 100
[2018-06-26] MEDS: ENOXAPARIN 40 MG/0.4 ML SQ SCH (16:03)
[2018-06-26] MEDS ORDERED: SUCCINYLCHOLINE 20 MG/ML (10 ML) IV ONE (17:05)
--- NOTE | 2018-06-26 20:16 | P.PN ---
Subjective Date of Service: 06/26/18 Primary Care Provider: Dr. Power Chief Complaint: gallstone cholecystitis, pancreatitis Subjective: Improving (S/p lap [place] today and feels better.) Review of Systems 10-point ROS is otherwise unremarkable Gastrointestinal: Abdominal Pain (post-op pain now) Physical Examination - Vital Signs Temperature: 97 F Blood Pressure: 126/61 Pulse: 61 Respirations: 18 Pulse Ox (%): 97 - Physical Exam General: Alert, In no apparent distress, Oriented x3, Cooperative HEENT: Atraumatic, Normocephalic, PERRLA, EOMI Neck: Supple Respiratory: Normal air movement Cardiovascular: Normal pulses Gastrointestinal: No rebound, Tenderness (post-op pain), Guarding Neurological: Normal speech, Normal strength at 5/5 x4 extr - Studies Medications List Reviewed: Yes Assessment And Plan - Current Problems (Diagnosis) (1) Gallstone pancreatitis Current Visit: Yes Status: Acute (2) Epigastric abdominal pain Current Visit: Yes Status: Acute (3) RUQ abdominal pain Current Visit: Yes Status: Acute (4) Cholecystitis Current Visit: Yes Status: Acute (5) Cholelithiasis Current Visit: Yes Status: Acute Qualifiers: Cholelithiasis location: gallbladder Cholecystitis acuity: acute Biliary obstruction: without biliary obstruction - Plan REC: 1) diet as per surgery 2) continue IVFs 3) GI clinic f/u in 1-2 weeks Physician Review Additional Text: Impression: Abdominal pain secondary to gallstone pancreatitis with cholelithiasis and cholecystitis with elevated liver function GERD with hiatal hernia Fatty liver Obesity, BMI 34 Plan: Abdominal pain secondary to gallstone pancreatitis with cholelithiasis and cholecystitis with elevated liver function: MRCP negative. Continue IV antibiotic therapy and fluids. Patient NPO for surgery. Case discussed with GI and surgery yesterday. Anticipate laparoscopic cholecystectomy today. Possible discharge as early as today or tomorrow if tolerating diet. Improvement in lab noted. Continue monitor closely. Continue DVT prophylaxis. GERD with hiatal hernia: Will continue with medication. Fatty liver: Will continue to provide education. This can be further addressed by GI as an outpatient. Obesity, BMI 34: Will continue to address lifestyle modification education.
[2018-06-26] MEDS: HYDROCODONE/APAP 7.5/325 MG TAB PO PRN (23:48)
[2018-06-27] MEDS: NA CHLORIDE 0.9% 1,000 ML IV SCH (03:15)
[2018-06-27 08:55] VITALS: BP 129/70; TEMP 98
[2018-06-27] MEDS: PANTOPRAZOLE 40 MG INJ IVP SCH (09:05)
[2018-06-27] MEDS: METRONIDAZOLE 500mg IVPB 500 MG/100 ML BAG IV SCH (09:07)
[2018-06-27] MEDS: HYDROCODONE/APAP 7.5/325 MG TAB PO PRN (09:08)
--- NOTE | 2018-06-27 09:43 | P.DS ---
Admission Date: 06/25/18 Discharge Date: 06/27/18 Primary Care Provider: Dr. Power Disposition: ROUTINE DISCHARGE Discharge Condition: GOOD Reason for Admission: gallstone cholecystitis, pancreatitis Consultations: GI-Dr. Peguero Surgery-Dr. Lyman Procedures: CT scan: IMPRESSION: 1. Questionable cholecystitis. Gallbladder ultrasound recommended. 2. Mild generalized ileus. 3. Questionable urinary tract infection in the left UPJ. 4. Small hiatal hernia. 5. Diffuse fatty liver infiltration. ABUS: FINDINGS: Multiple gallstones. Gallbladder wall mildly thickened The biliary tree is normal caliber. IMPRESSION: Cholelithiasis. Mild gallbladder wall thickening may indicate cholecystitis MRCP: FINDINGS: Numerous small gallstones are identifiable. Gallbladder wall is mildly thickened. No biliary tree dilatation. No duct stone, stricture or mass. No dilation of the pancreatic duct. IMPRESSION: Cholelithiasis with gallbladder wall thickening. Negative exam of the biliary tree. Surgery: Date: 06/26/18 14:41 Preoperative diagnosis: Cholecystitis with cholelithiasis Postoperative diagnosis: The same Primary procedure: Laparoscopic cholecystectomy Secondary procedure: Cholangiogram Anesthesia: General Estimated blood loss: Less than 10 cc Specimen: In gallbladder and contents Medical problem list: Abdominal pain secondary to gallstone pancreatitis with cholelithiasis and cholecystitis with elevated liver function status post laparoscopic cholecystectomy with intraoperative cholangiogram GERD with hiatal hernia Fatty liver Obesity, BMI 34 Brief History of Present Illness: 58-year-old female presented to emergency room with abdominal pain, nausea and vomiting. Patient found to have gallstone pancreatitis with cholelithiasis and cholecystitis. Patient was admitted for treatment. Hospital Course: Patient presented with abdominal pain secondary to gallstone pancreatitis with cholelithiasis and cholecystitis. Patient had elevated liver function tests. The patient was seen and evaluated by GI and surgery. MRCP showed no stones within the biliary system. Patient had laparoscopic cholecystectomy with intraoperative cholangiogram. Biliary system was flushed intraoperatively without evidence of any filling defect. Patient did well post operatively. Patient able to tolerate a GI soft diet. Patient without any significant abdominal pain, nausea vomiting at discharge. At discharge, she will continue with Cipro 500 mg 1 pill twice daily and Flagyl 500 mg 3 times a day for 7 days. Patient will continue with post operative care instructions. No heavy lifting, pushing or pulling. Recommend to follow up with surgery within 1 week to follow up this hospitalization. Recommend to follow up with GI in 2-4 weeks to follow up this hospitalization. Recommend to recheck lab-CMP in 1 week monitor progress. Patient likely with underlying GERD. CT scan revealed hiatal hernia. Recommend to continue with Protonix 40 mg daily. Patient will follow up with GI to further evaluate. Patient with fatty liver. Education will be provided. Recommend to follow up with GI to further monitor. Vital Signs/Physical Exam: Temp Pulse Resp BP Pulse Ox 98.0 F 72 18 129/70 100 06/27/18 08:00 06/27/18 08:00 06/27/18 08:00 06/27/18 08:00 06/27/18 08:00 General: Alert, In no apparent distress, Oriented x3, Cooperative HEENT: Atraumatic Neck: Supple Respiratory: Clear to auscultation bilaterally, Normal air movement Cardiovascular: Normal pulses, Regular rate/rhythm Gastrointestinal: Normal bowel sounds, Soft and benign, Non-distended, No tenderness, No masses, No rebound, No guarding, Other (Postoperative changes noted) Neurological: Normal speech, Normal strength at 5/5 x4 extr, Normal tone, Normal affect Laboratory Data at Discharge: WBC 6.4 K/uL (4.3-10.9) 06/26/18 05:15 Hgb 10.5 g/dL (12.0-15.0) L 06/26/18 05:15 Hct 31.2 % (36.0-45.0) L D 06/26/18 05:15 Plt Count 195 K/uL (152-406) D 06/26/18 05:15 PT 13.7 SECONDS (9.5-12.5) H 06/24/18 21:50 INR 1.17 06/24/18 21:50 Sodium 141 mmol/L (136-145) 06/26/18 05:15 Potassium 4.3 mmol/L (3.5-5.1) 06/26/18 05:15 BUN 9 mg/dL (7-18) 06/26/18 05:15 Creatinine 0.62 mg/dL (0.55-1.3) 06/26/18 05:15 Glucose 69 mg/dL (74-106) L 06/26/18 05:15 Magnesium 2.2 mg/dL (1.8-2.4) 06/25/18 12:00 Total Bilirubin 0.8 mg/dL (0.2-1.0) 06/26/18 05:15 AST 56 U/L (15-37) H 06/26/18 05:15 ALT 101 U/L (12-78) H 06/26/18 05:15 Alkaline Phosphatase 241 U/L (45-117) H 06/26/18 05:15 Lipase 74 U/L (73-393) 06/26/18 05:15 Home Medications: Ciprofloxacin HCl [Cipro 500 MG Tablet] 500 mg PO BID #14 tab 06/27/18 Pantoprazole [Protonix Tab] 40 mg PO DAILY #30 tab 06/27/18 metroNIDAZOLE [Flagyl] 500 mg PO Q8H #21 tablet 06/27/18 New Medications: Ciprofloxacin HCl [Cipro 500 MG Tablet] 500 mg PO BID #14 tab metroNIDAZOLE [Flagyl] 500 mg PO Q8H #21 tablet Pantoprazole [Protonix Tab] 40 mg PO DAILY #30 tab Patient Discharge Instructions: 1. Follow up with Surgery within one week. 2. Patient presented with abdominal pain secondary to gallstone pancreatitis with cholelithiasis and cholecystitis. Patient had elevated liver function tests. The patient was seen and evaluated by GI and surgery. MRCP showed no stones within the biliary system. Patient had laparoscopic cholecystectomy with intraoperative cholangiogram. Biliary system was flushed intraoperatively without evidence of any filling defect. Patient did well post operatively. Patient able to tolerate a GI soft diet. Patient without any significant abdominal pain, nausea vomiting at discharge. At discharge, she will continue with Cipro 500 mg 1 pill twice daily and Flagyl 500 mg 3 times a day for 7 days. Patient will continue with post operative care instructions. No heavy lifting, pushing or pulling. Recommend to follow up with surgery within 1 week to follow up this hospitalization. Recommend to follow up with GI in 2-4 weeks to follow up this hospitalization. Recommend to recheck lab-CMP in 1 week monitor progress. 3. Patient likely with underlying GERD. CT scan revealed hiatal hernia. Recommend to continue with Protonix 40 mg daily. Patient will follow up with GI to further evaluate. 4. Patient with fatty liver. Education will be provided. Recommend to follow up with GI to further monitor. Diet: GI soft diet Activity: No lifting more than 10 lbs Time spent managing pt's care (in minutes): 55
[2018-06-27] MEDS: CIPROFLOXACIN 400mg IV 400 MG/200 ML BAG IV SCH (11:00)
--- NOTE | 2018-06-30 11:19 | EKG ---
Test Date: 2018-06-24 Test Time: 18:29:11 Inorganic Chemistry Professor: JHONNY MEASUREMENT RESULTS: Intervals: Rate: 76 MO: 118 QRSD: 88 QT: 404 QTc: 454 [place]: P: -8 MO: 118 QRS: 17 T: 46 INTERPRETIVE STATEMENTS: Normal sinus rhythm Normal ECG Compared to ECG 08/16/2016 19:05:02 No significant changes Electronically Signed On 06-25-18 05:57:52 CDT by Jong Miller
== END 2018-06-27 12:36 | disposition home or self-care (01) | DRG 417 ==
LOC: ER 17:57 → ERHOLD 06-25 00:12 → 4TH 06-25 00:55
PROVIDERS: ADMIT Internal Medicine; ATTEND Family Medicine
PROC: BF03YZZ Plain Radiography of Gallbladder and Bile Ducts using Other Contrast (ICD-10-PCS; 2018-06-26)
PROC: 0FT44ZZ Resection of Gallbladder, Percutaneous Endoscopic Approach (ICD-10-PCS; principal; 2018-06-26 13:00)
DX: K80.10 Calculus of gallbladder with chronic cholecystitis without obstruction (principal); K85.10 Biliary acute pancreatitis without necrosis or infection; K21.9 Gastro-esophageal reflux disease without esophagitis; K76.0 Fatty (change of) liver, not elsewhere classified; K44.9 Diaphragmatic hernia without obstruction or gangrene; E66.9 Obesity, unspecified; Z68.34 Body mass index [BMI] 34.0-34.9, adult
CPT/HCPCS: 36415; 71045; 74177; 74181; 74300; 76705; 80048; 80053; 80076; 81003; 81015; 83690; 83735; 83880; 84484; 85025; 85610; 88304; 93005; 96365; 96375; 99285; C9113; J0330; J0696; J0744; J1170; J1650; J2250; J2270; J2405; J2550; J2704; J2710; J3010; J7030; Q9967

== ENCOUNTER 2019-04-08 21:08 | Observation (INO) | payer SELFPAY ==
[2019-04-08 21:46] LABS: Absolute Lymphocytes (CBC) 2.3 K/uL (0.7-4.9); Basophils % 0.8 % (0-1.3); Hematocrit 33.3 % (36.0-45.0); Lymphocytes % 37.9 % (15.3-44.8); MPV 8.8 fL (7.6-11.3); RBC Red Blood Cell Count 3.54 M/uL (3.86-4.86)
[2019-04-08 21:48] LABS: Protime INR 1.18
[2019-04-08] MEDS ORDERED: NITROGLYCERIN 0.4 MG/TAB SL ONE (21:48)
[2019-04-08] MEDS ORDERED: ASPIRIN 81 MG CHEWABLE TABLET ONE (21:48)
[2019-04-08 22:05] LABS: ALT/SGPT 16 U/L (12-78); AST/SGOT 9 U/L (15-37); Albumin 3.6 g/dL (3.4-5.0); Alkaline Phosphatase 123 U/L (45-117); BUN Blood Urea Nitrogen 11 mg/dL (7-18); Bicarbonate 31 mmol/L (21-32); Bilirubin Direct 0.1 mg/dL (0-0.2); Bilirubin Total 0.3 mg/dL (0.2-1.0); Glucose Level 112 mg/dL (74-106); Magnesium 2.1 mg/dL (1.8-2.4); NT PRO-BNP 56 pg/mL (<125); Potassium 3.5 mmol/L (3.5-5.1); Protein, Total 7.6 g/dL (6.4-8.2); Sodium Level 146 mmol/L (136-145); Troponin (Emerg Dept Use Only) < 0.02 ng/mL (0.0-0.045)
--- NOTE | 2019-04-08 22:52 | ER ---
Nurse's Notes [facility] Name: Quiana Valverde Age: 59 yrs Sex: Female : 1960 Arrival Date: 04/08/2019 Time: 21:08 Bed 19 Private MD: Diagnosis: Angina pectoris, unspecified Presentation: 04/08 21:18 Presenting complaint: Patient states: chest pains since 1430, with chest heaviness and ch sob. Transition of care: patient was not received from another setting of care. Onset of symptoms was April 08, 2019 at 14:30. Risk Assessment: Do you want to hurt yourself or someone else? Patient reports no desire to harm self or others. Initial Sepsis Screen: Does the patient meet any 2 criteria? No. Patient's initial sepsis screen is negative. Does the patient have a suspected source of infection? No. Patient's initial sepsis screen is negative. Care prior to arrival: None. 21:18 Method Of Arrival: Ambulatory 21:18 Acuity: PASTORA 3 ch Triage Assessment: 21:21 General: Appears in no apparent distress. comfortable, Behavior is calm, cooperative, ch appropriate for age. Pain: Complains of pain in chest Pain currently is 8 out of 10 on a pain scale. Cardiovascular: Reports chest pain, shortness of breath, Heart tones S1 S2 present. Respiratory: No deficits noted. Derm: Skin is pink, warm \T\ dry. Historical: - Allergies: 21:21 No Known Allergies; ch - Home Meds: 21:21 otc supplements [Active]; ch - PMHx: 21:21 lactose intolerant; gluten intolerant; takes probiotics; chest pains- benign; ch - PSHx: 21:21 Cholecystectomy; Hysterectomy; Tubal ligation; colonoscopy; ch - Immunization history:: Adult Immunizations up to date, Last tetanus immunization: not indicated for visit today. < 10 years ago Flu vaccine is not up to date. - Social history:: Smoking status: Patient/guardian denies using tobacco, Patient/guardian denies using alcohol, street drugs. - Ebola Screening: : Patient negative for fever greater than or equal to 101.5 degrees Fahrenheit, and additional compatible Ebola Virus Disease symptoms Patient denies exposure to infectious person Patient denies travel to an Ebola-affected area in the 21 days before illness onset No symptoms or risks identified at this time. Screenin:22 Abuse screen: Denies threats or abuse. Denies injuries from another. Nutritional ch screening: No deficits noted. Tuberculosis screening: No symptoms or risk factors identified. Fall Risk None identified. Assessment: 21:22 Pain: Pain radiates to right arm pt is having pain to R arm when she wakes up too for a ch while. states she thinks she is sleeping wrong. Pain began gradually. 21:55 Reassessment: Patient appears in no apparent distress at this time. Patient and/or ch family updated on plan of care and expected duration. Pain level reassessed. Patient is alert, oriented x 3, equal unlabored respirations, skin warm/dry/pink. 23:00 Reassessment: Patient appears in no apparent distress at this time. Patient and/or ch family updated on plan of care and expected duration. Pain level reassessed. Patient is alert, oriented x 3, equal unlabored respirations, skin warm/dry/pink. pt states she felt relief from the first nitro pill, and more relief from the second one. physician notified. pt given third pill Patient states feeling better. 23:11 Reassessment: Patient appears in no apparent distress at this time. Vital Signs: 21:21 BP 141 / 73; Pulse 71; Resp 16; Temp 98.3; Pulse Ox 99% on R/A; Pain 8/10; ch 21:55 BP 144 / 76; Pulse 64; ch 22:40 BP 160 / 72; Pulse 64; Resp 14; Temp 98.5; Pulse Ox 99% on R/A; Pain 6/10; ch 23:00 BP 133 / 66; Pulse 63; Resp 14; Pulse Ox 99% on R/A; Pain 5/10; ch 23:39 BP 140 / 65; Pulse 68; Resp 16; Temp 98.4(O); Pulse Ox 99% on R/A; Pain 3/10; Vitals: 22:40 Cardiac Rhythm Assessment Regular Sinus rhythm. ED Course: 21:08 Patient arrived in ED. ds1 21:18 Hernán Sanabria MD is Attending Physician. tw4 21:18 Vangie Genao, RN is Primary Nurse. 21:20 Triage completed. 21:21 Arm band placed on left wrist. Patient placed in an exam room, on a stretcher, on ekg monitor tech, on pulse oximetry. EKG completed in triage. Results shown to MD. 21:22 No apparent distress. Resting quietly. 21:22 Patient has correct armband on for positive identification. Bed in low position. Call light in reach. Side rails up X 1. night monitor on. Pulse ox on. NIBP on. Door closed. Noise minimized. Warm blanket given. 21:22 No provider procedures requiring assistance completed. Patient maintains SpO2 saturation greater than 95% on room air. 21:38 Initial lab(s) drawn, by mi, sent to lab. Inserted saline lock: 20 gauge in left antecubital area, using aseptic technique. Blood collected. 21:50 XRAY Chest (1 view) In Process Unspecified. EDNC 22:51 Ashley Palacios MD is Hospitalizing Provider. tw4 23:39 Patient admitted, IV remains in place. Administered Medications: 21:40 Drug: Aspirin Chewable Tablet 324 mg Route: PO; 22:51 Follow up: Response: No adverse reaction 21:55 Drug: Nitroglycerin 0.4 mg Route: Sublingual; 22:40 Follow up: Response: No adverse reaction; Pain is decreased 22:55 Drug: Nitroglycerin 0.4 mg Route: Sublingual; 23:01 Drug: Nitroglycerin 0.4 mg Route: Sublingual; 23:41 Follow up: Response: No adverse reaction; Pain is decreased Outcome: 22:51 Decision to Hospitalize by Provider. tw4 23:40 Admitted to Med/surg accompanied by [facility], with chart. 23:40 Condition: stable 23:40 Instructed on the need for admit. 23:46 Admitted to Med/surg Report called to [facility] 04/09 00:07 Patient left the ED. Signatures: Dispatcher [employer] Vangie Brown, Zofia Dodd RN, ch ds1 Hernán Sanabria MD MD tw4
--- NOTE | 2019-04-08 22:52 | EDPHYS ---
Physician Documentation [facility] Name: Quiana Valverde Age: 59 yrs Sex: Female : 1960 Arrival Date: 04/08/2019 Time: 21:08 Bed 19 Private MD: ED Physician Hernán Sanabria HPI: 04/08 23:50 This 59 yrs old Female presents to ER via Ambulatory with complaints of Chest tw4 Pain, Shortness Of Breath. 23:50 The patient or guardian reports chest pain that is located primarily in the anterior tw4 chest wall, left. Onset: today. The pain does not radiate. Associated signs and symptoms: The patient has no apparent associated signs or symptoms. The chest pain is described as dull. Duration: The patient or guardian reports a single episode. Severity of pain: At its worst the pain was moderate in the emergency department the pain is unchanged. The patient has not experienced similar symptoms in the past. Historical: - Allergies: 21:21 No Known Allergies; ch - Home Meds: 21:21 otc supplements [Active]; ch - PMHx: 21:21 lactose intolerant; gluten intolerant; takes probiotics; chest pains- benign; ch - PSHx: 21:21 Cholecystectomy; Hysterectomy; Tubal ligation; colonoscopy; ch - Immunization history:: Adult Immunizations up to date, Last tetanus immunization: not indicated for visit today. < 10 years ago Flu vaccine is not up to date. - Social history:: Smoking status: Patient/guardian denies using tobacco, Patient/guardian denies using alcohol, street drugs. - Ebola Screening: : Patient negative for fever greater than or equal to 101.5 degrees Fahrenheit, and additional compatible Ebola Virus Disease symptoms Patient denies exposure to infectious person Patient denies travel to an Ebola-affected area in the 21 days before illness onset No symptoms or risks identified at this time. ROS: 23:50 Constitutional: Negative for fever, chills, and weight loss, Eyes: Negative for injury, tw4 pain, redness, and discharge, Respiratory: Negative for shortness of breath, cough, wheezing, and pleuritic chest pain, Abdomen/GI: Negative for abdominal pain, nausea, vomiting, diarrhea, and constipation, Back: Negative for injury and pain, MS/Extremity: Negative for injury and deformity, Skin: Negative for injury, rash, and discoloration, Neuro: Negative for headache, weakness, numbness, tingling, and seizure. 23:50 Cardiovascular: Positive for chest pain, Negative for edema, orthopnea, palpitations, paroxysmal nocturnal dyspnea. Exam: 23:50 Constitutional: This is a well developed, well nourished patient who is awake, alert, tw4 and in no acute distress. Head/Face: Normocephalic, atraumatic. Chest/axilla: Normal chest wall appearance and motion. Nontender with no deformity. No lesions are appreciated. Cardiovascular: Regular rate and rhythm with a normal S1 and S2. No gallops, murmurs, or rubs. Normal PMI, no JVD. No pulse deficits. Respiratory: Lungs have equal breath sounds bilaterally, clear to auscultation and percussion. No rales, rhonchi or wheezes noted. No increased work of breathing, no retractions or nasal flaring. Abdomen/GI: Soft, non-tender, with normal bowel sounds. No distension or tympany. No guarding or rebound. No evidence of tenderness throughout. Back: No spinal tenderness. No costovertebral tenderness. Full range of motion. MS/ Extremity: Pulses equal, no cyanosis. Neurovascular intact. Full, normal range of motion. Neuro: Awake and alert, GCS 15, oriented to person, place, time, and situation. Cranial nerves II-XII grossly intact. Motor strength 5/5 in all extremities. Sensory grossly intact. Cerebellar exam normal. Normal gait. Vital Signs: 21:21 BP 141 / 73; Pulse 71; Resp 16; Temp 98.3; Pulse Ox 99% on R/A; Pain 8/10; ch 21:55 BP 144 / 76; Pulse 64; ch 22:40 BP 160 / 72; Pulse 64; Resp 14; Temp 98.5; Pulse Ox 99% on R/A; Pain 6/10; ch 23:00 BP 133 / 66; Pulse 63; Resp 14; Pulse Ox 99% on R/A; Pain 5/10; ch 23:39 BP 140 / 65; Pulse 68; Resp 16; Temp 98.4(O); Pulse Ox 99% on R/A; Pain 3/10; ch MDM: 21:18 Patient medically screened. tw4 23:50 Differential diagnosis: abnormal EKG, acute myocardial infarction, acute pericarditis, tw4 anxiety, cholecystitis, Cholelithiasis costochondritis, pulmonary embolus, stable angina. HEART Score: History: Moderately Suspicious (1), ECG: Normal (0), Age: > 45 and < 65 years (1), Risk Factors: 1 or 2 risk factors (1), Troponin: < or = 1 x Normal Limit (0), Total Score = 3. The patient was given aspirin in the Emergency Department. Data reviewed: vital signs, nurses notes. Data interpreted: Pulse oximetry: Interpretation: normal. Test interpretation: by ED physician or midlevel provider: ECG, plain radiologic studies. Counseling: I had a detailed discussion with the patient and/or guardian regarding: the historical points, exam findings, and any diagnostic results supporting the discharge/admit diagnosis, lab results, radiology results. Physician consultation: Ashley Palacios MD was contacted at 22:46, regarding admission, to the telemetry unit. patient's condition, and will see patient in ED. 04/08 21:18 Order name: Basic Metabolic Panel; Complete Time: 22:49 04/08 22:50 Interpretation: Normal except: NA 146; GLUC 112; CL 110; GFR 65. 04/08 21:18 Order name: CBC with Diff; Complete Time: 22:49 04/08 22:50 Interpretation: Normal except: RBC 3.54; HGB 11.2; HCT 33.3. 04/08 21:18 Order name: LFT's; Complete Time: 22:49 04/08 22:50 Interpretation: Normal except: AST 9; ALK 123; GLOB 4.0; A/G 0.9. 04/08 21:18 Order name: Magnesium; Complete Time: 22:49 04/08 22:50 Interpretation: Within normal limits: MG 2.1. 04/08 21:18 Order name: NT PRO-BNP; Complete Time: 22:49 04/08 22:50 Interpretation: Within normal limits: NT PRO-BNP 56. 04/08 21:18 Order name: PT-INR; Complete Time: 22:49 04/08 22:50 Interpretation: Normal except: PT 13.8. 04/08 21:18 Order name: Troponin (emerg Dept Use Only); Complete Time: 22:49 4 04/08 22:51 Interpretation: Within normal limits: TROPED < 0.02. [facility] 04/08 21:18 Order name: XRAY Chest (1 view) [facility] 04/08 23:21 Order name: Echo with Doppler [facility] 04/08 23:22 Order name: Lipid Profile [facility] 04/08 23:22 Order name: Lipid Profile [facility] 04/08 23:22 Order name: Troponin I [facility] 04/08 23:22 Order name: Troponin I [facility] 04/08 21:18 Order name: EKG; Complete Time: 21:20 tw4 04/08 21:18 Order name: Cardiac monitoring; Complete Time: 21:24 [facility] 04/08 21:18 Order name: EKG - Nurse/Tech; Complete Time: 21:24 tw 04/08 21:18 Order name: IV Saline Lock; Complete Time: 21:39 tw4 04/08 21:18 Order name: Labs collected and sent; Complete Time: 21:39 [facility] 04/08 21:18 Order name: O2 Per Protocol; Complete Time: 21:24 tw 04/08 21:18 Order name: O2 Sat Monitoring; Complete Time: 21:24 tw 04/08 23:21 Order name: Heart Healthy [facility] 04/08 23:22 Order name: EKG Electrocardiogram [facility] 04/08 23:22 Order name: EKG Electrocardiogram [facility] EC:50 Rate is 66 beats/min. Rhythm is regular. QRS [place] is Normal. WI interval is normal. QRS tw4 interval is normal. QT interval is normal. No Q waves. T waves are Normal. No ST changes noted. Clinical impression: Normal ECG. Interpreted by me. Reviewed by me. Administered Medications: 21:40 Drug: Aspirin Chewable Tablet 324 mg Route: PO; ch 22:51 Follow up: Response: No adverse reaction ch 21:55 Drug: Nitroglycerin 0.4 mg Route: Sublingual; ch 22:40 Follow up: Response: No adverse reaction; Pain is decreased ch 22:55 Drug: Nitroglycerin 0.4 mg Route: Sublingual; ch 23:01 Drug: Nitroglycerin 0.4 mg Route: Sublingual; ch 23:41 Follow up: Response: No adverse reaction; Pain is decreased ch Disposition: 04/08/19 22:51 Hospitalization ordered by Ashley Palacios for Inpatient Admission. Preliminary diagnosis is Angina pectoris, unspecified. - Bed requested for Telemetry/MedSurg (Inpatient). - Status is Inpatient Admission. - Condition is Stable. - Problem is new. - Symptoms have improved. UTI on Admission? No Signatures: Dispatcher [employer] EDMS Vangie Genao, OSORIO RN Griselda Jensen RN RN tl1 Hernán Sanabria MD MD tw4 Corrections: (The following items were deleted from the chart) 23:27 22:51 Hospitalization Ordered by Ashley Palacios MD for Inpatient Admission. Preliminary tl1 diagnosis is Angina pectoris, unspecified. Bed requested for Telemetry/MedSurg (Inpatient). Status is Inpatient Admission. Condition is Stable. Problem is new. Symptoms have improved. UTI on Admission? No. tw4 04/09 00:07 04/08 23:27 04/08/2019 22:51 Hospitalization Ordered by Ashley Palacios MD for Inpatient Admission. Preliminary diagnosis is Angina pectoris, unspecified. Bed requested for Telemetry/MedSurg (Inpatient). Status is Inpatient Admission. Condition is Stable. Problem is new. Symptoms have improved. UTI on Admission? No. tl1
[2019-04-08] MEDS ORDERED: ALPRAZOLAM 0.25 MG TABLET PO PRN (23:18)
[2019-04-08] MEDS ORDERED: ACETAMINOPHEN 500 MG TAB PO PRN (23:18)
[2019-04-08] MEDS ORDERED: MORPHINE 4 MG/ML SYR IV PRN (23:18)
[2019-04-09 00:41] VITALS: BMI 31.7
[2019-04-09 00:44] VITALS: O2SAT 99
[2019-04-09] MEDS ORDERED: D5 0.45 NS 1,000 ML IV SCH (06:00)
[2019-04-09] MEDS ORDERED: HYDROCORTISONE SUC 100 MG INJ IV ONE (06:23)
--- NOTE | 2019-04-09 08:17 | RAD REPORT ---
EXAM DESCRIPTION: Dolores Single View04/08/2019 9:50 pm CLINICAL HISTORY: Chest pain COMPARISON: June 2018 FINDINGS: The lungs appear clear of acute infiltrate. The heart is normal size IMPRESSION: No acute abnormalities displayed
[2019-04-09] MEDS ORDERED: METOPROLOL TAR 50 MG TAB PO SCH (09:00)
[2019-04-09] MEDS ORDERED: ASPIRIN EC 81 MG TAB PO SCH (09:00)
[2019-04-09] MEDS ORDERED: ENOXAPARIN 40 MG/0.4 ML SQ SCH (09:00)
[2019-04-09] MEDS ORDERED: REGADENOSON 0.4 MG/5 ML SYR IV ONE (09:18)
[2019-04-09 09:26] VITALS: BP 145/69; TEMP 97.1
--- NOTE | 2019-04-09 10:32 | P.HP ---
Certification for Inpatient Patient admitted to: Observation With expected LOS: <2 Midnights Patient will require the following post-hospital care: None Practitioner: I am a practitioner with admitting privileges, knowledge of patient current condition, hospital course, and medical plan of care. Services: Services provided to patient in accordance with Admission requirements found in Title 42 Section 412.3 of the Code of Federal Regulations Patient History Date of Service: 04/08/19 Reason for admission: Chest pain rule out acute coronary syndrome History of Present Illness: patient is a 59-year-old female who came to the hospital chest discomfort. Pain was mainly in the sternal region. It was also in the epigastric region. She feels like a soreness in her muscles. She has been worked up in the past and has never been diagnosed with cardiac disease. She denies any nausea or vomiting. She denies diaphoresis. She was not short of breath. She was just feeling an ache around the chest region so she came for evaluation. She has had a stress test since 2004. if her troponins are negative I will go ahead and arrange for a stress test. Also get an echocardiogram. She has had a pericarditis in the past. She has had this feels very different than her episode of pericarditis however. At this time will admit her for further workup. Allergies No Known Drug Allergies Allergy (Verified 04/09/19 00:27) Unknown Home Medications: NK [No Home Meds] 04/09/19 - Past Medical/Surgical History Has patient received pneumonia vaccine in the past: No Diabetic: No -: GERD -: cholecystitis -: Pericarditis -: tubal ligation 1991 -: hysterectomy -: bladder suspension -: hemorrhoidectomy - Family History Mother Medical History: Hypertension, Diabetes, Stroke, Kidney disease - Social History Smoking Status: Never smoker Alcohol use: No CD- Drugs: No Caffeine use: No Place of Residence: Home Review of Systems 10-point ROS is otherwise unremarkable Physical Examination - Vital Signs Temperature: 97.1 F Blood Pressure: 145/69 Pulse: 58 Respirations: 15 Pulse Ox (%): 99 - Physical Exam General: Alert, In no apparent distress, Oriented x3 HEENT: Atraumatic, PERRLA, Mucous membr. moist/pink, EOMI, Sclerae nonicteric Neck: Supple, 2+ carotid pulse no bruit, No LAD, Without JVD or thyroid abnormality Respiratory: Clear to auscultation bilaterally, Normal air movement Cardiovascular: Regular rate/rhythm, Normal S1 S2, No rubs, No murmurs Gastrointestinal: Normal bowel sounds, Soft and benign, Non-distended, No tenderness Musculoskeletal: No clubbing, No swelling, No tenderness Integumentary: No rashes Neurological: Normal gait, Normal speech, Normal strength at 5/5 x4 extr, Normal tone, Sensation intact, Cranial nerves 3-12 intact, Normal affect Lymphatics: No axilla or inguinal lymphadenopathy - Studies Laboratory Data (last 24 hrs) 04/08/19 21:34: PT 13.8 H, INR 1.18 04/08/19 21:34: WBC 6.1, Hgb 11.2 L, Hct 33.3 L, Plt Count 236 04/08/19 21:34: Sodium 146 H, Potassium 3.5, BUN 11, Creatinine 0.90, Glucose 112 H, Magnesium 2.1, Total Bilirubin 0.3, AST 9 L, ALT 16, Alkaline Phosphatase 123 H Assessment & Plan - Problems (Diagnosis) (1) Chest pain, rule out acute myocardial infarction Current Visit: Yes Status: Acute (2) Costochondritis, acute Current Visit: Yes Status: Acute - Plan 1. Serial troponins and EKG 2. musculoskeletal pain most likely. Anti-inflammatory 3. Echocardiogram and inpatient stress test 4. Anti-platelet therapy, anti coagulation, beta-wiliam, statin, and O2 as needed 5. IV morphine for pain 6. Nitro p.r.n. Discharge Plan: Home Plan to discharge in: 24 Hours - Advance Directives Does patient have a Living Will: No Does patient have a Durable POA for Healthcare: No - Code Status/Comfort Care Code Status Assessed: Yes Code Status: Full Code Critical Care: No Time Spent Managing PTS Care (In Minutes): 45
--- NOTE | 2019-04-09 10:34 | P.DS ---
Discharge Date: 04/09/19 Disposition: ROUTINE DISCHARGE Discharge Condition: GOOD Reason for Admission: Chest pain rule out acute coronary syndrome Consultations: cardiology - Problems (1) Chest pain, rule out acute myocardial infarction Status: Acute (2) Costochondritis, acute Status: Acute Brief History of Present Illness: patient is a 59-year-old female who came to the hospital chest discomfort. Pain was mainly in the sternal region. It was also in the epigastric region. She feels like a soreness in her muscles. She has been worked up in the past and has never been diagnosed with cardiac disease. She denies any nausea or vomiting. She denies diaphoresis. She was not short of breath. She was just feeling an ache around the chest region so she came for evaluation. She has had a stress test since 2004. if her troponins are negative I will go ahead and arrange for a stress test. Also get an echocardiogram. She has had a pericarditis in the past. She has had this feels very different than her episode of pericarditis however. At this time will admit her for further workup. Hospital Course: patient was worked up extensively. Patient's stress test did not reveal evidence of coronary artery disease. Patient most likely has costochondritis or myalgia. Will give patient anti-inflammatory. At this time patient is stable for discharge home with outpatient follow-up. Vital Signs/Physical Exam: Temp Pulse Resp BP Pulse Ox 97.1 F 58 15 145/69 H 99 04/09/19 10:32 04/09/19 10:32 04/09/19 10:32 04/09/19 10:32 04/09/19 10:32 General: Alert, In no apparent distress, Oriented x3 Laboratory Data at Discharge: WBC 6.1 K/uL (4.3-10.9) 04/08/19 21:34 Hgb 11.2 g/dL (12.0-15.0) L 04/08/19 21:34 Hct 33.3 % (36.0-45.0) L 04/08/19 21:34 Plt Count 236 K/uL (152-406) 04/08/19 21:34 PT 13.8 SECONDS (9.5-12.5) H 04/08/19 21:34 INR 1.18 04/08/19 21:34 Sodium 146 mmol/L (136-145) H 04/08/19 21:34 Potassium 3.5 mmol/L (3.5-5.1) 04/08/19 21:34 BUN 11 mg/dL (7-18) 04/08/19 21:34 Creatinine 0.90 mg/dL (0.55-1.3) 04/08/19 21:34 Glucose 112 mg/dL (74-106) H 04/08/19 21:34 Magnesium 2.1 mg/dL (1.8-2.4) 04/08/19 21:34 Total Bilirubin 0.3 mg/dL (0.2-1.0) 04/08/19 21:34 AST 9 U/L (15-37) L 04/08/19 21:34 ALT 16 U/L (12-78) 04/08/19 21:34 Alkaline Phosphatase 123 U/L (45-117) H 04/08/19 21:34 Troponin I < 0.02 ng/mL (0.0-0.045) 04/09/19 01:27 Triglycerides 130 mg/dL (<150) 04/09/19 05:19 Cholesterol 142 mg/dL (<200) 04/09/19 05:19 HDL Cholesterol 42 mg/dL (40-60) 04/09/19 05:19 Cholesterol/HDL Ratio 3.38 04/09/19 05:19 Home Medications: Cyclobenzaprine HCl [Flexeril] 5 mg PO BID PRN #20 tablet 04/09/19 predniSONE [Prednisone*] 20 mg PO BID #10 tab 04/09/19 New Medications: Cyclobenzaprine HCl [Flexeril] 5 mg PO BID PRN #20 tablet PRN Reason: MYALGIA predniSONE [Prednisone*] 20 mg PO BID #10 tab Patient Discharge Instructions: OK TO DC IV AND DC HOME. FOLLOW-UP WITH PRIMARY CARE PROVIDER IN 1-2 WEEKS. FOLLOW-UP WITH CARDIOLOGY IN 1-2 WEEKS. RETURN TO THE ER IF SYMPTOMS WORSEN. CALL DR. DELGADO AT [phone] IF ANY QUESTIONS REGARDING HOSPITAL STAY. PLEASE CALL THE FLOOR AT [phone] IF ANY MEDICATION OR NURSING QUESTIONS. Diet: AHA Activity: Fall precautions Time spent managing pt's care (in minutes): 25
--- NOTE | 2019-04-09 10:53 | RAD REPORT ---
EXAM DESCRIPTION: NM - Rest Stress Cardiac Imaging - 04/09/2019 10:41 am CLINICAL HISTORY: Chest pain COMPARISON: None. TECHNIQUE: The patient was administered approximately 10 mCi of Tc 99m Sestamibi prior to resting SP ECT imaging of the heart. The patient was then administered approximately 30 mCi of Tc 99m Sestamibi following exercise or pharmacologic stress. Multiplanar SPECT images were reviewed. FINDINGS: The end diastolic volume is 80 ml, the end systolic volume is 24 ml, and the ejection frac tion is 70 %. No stress-induced ischemic changes identifiable. A small area of diminished activity along the anteri or wall does not change between rest and stress imaging. This is favored to be breast attenuation art ifact but is potentially a small area of scarring. IMPRESSION: No stress-induced ischemic change identified. Ventricular volumes and ejection fraction are well within normal limits. Small fixed defect anterior wall is favored to be breast attenuation artifact but is potentially a sm all area of scarring.
--- NOTE | 2019-04-10 06:39 | EKG ---
Test Date: 2019-04-08 Test Time: 21:16:19 Mini Lab Operator: RENA MEASUREMENT RESULTS: Intervals: Rate: 66 LA: 132 QRSD: 92 QT: 414 QTc: 434 [place]: P: 18 LA: 132 QRS: 39 T: 62 INTERPRETIVE STATEMENTS: Normal sinus rhythm Normal ECG Compared to ECG 06/24/2018 18:29:11 No significant changes Electronically Signed On 04-10-19 06:36:16 CLERK SPECIALIST by Roldan Traore
--- NOTE | 2019-04-12 08:18 | ECHO ---
HEIGHT: 5 ft 2 in WEIGHT: 173 lb 7 oz DATE OF STUDY: 04/09/[address]: Ashley Palacios MD 2-DIMENSIONAL: YES M.MODE: YES DOPPLER: YES COLOR FLOW: YES TDS: NO PORTABLE: NO DEFINITY: NO BUBBLE STUDY: NO DIAGNOSIS: CHEST PAIN CARDIAC HISTORY: CATHERIZATION: NO SURGERY: NO PROSTHETIC VALVE: NO PACEMAKER: NO MEASUREMENTS (cm) DIASTOLIC (NORMALS) SYSTOLIC (NORMALS) IVSd 0.9 (0.6-1.2) LA Diam 3.5 (1.9-4.0) LVEF 84% LVIDd 4.9 (3.5-5.7) LVIDs 2.3 (2.0-3.5) %FS 54% LVPWd 0.9 (0.6-1.2) Ao Diam 2.6 (2.0-3.7) 2 DIMENSIONAL ASSESSMENT: RIGHT ATRIUM: NORMAL LEFT ATRIUM: NORMAL RIGHT VENTRICLE: NORMAL LEFT VENTRICLE: NORMAL TRICUSPID VALVE: NORMAL MITRAL VALVE: NORMAL PULMONIC VALVE: NORMAL AORTIC VALVE: NORMAL PERICARDIAL EFFUSION: NONE AORTIC ROOT: NORMAL LEFT VENTRICULAR WALL MOTION: NORMAL DOPPLER/COLOR FLOW: NORMAL COMMENTS: NORMAL 2D ECHOCARDIOGRAM WITH DOPPLER. NO WALL MOTION ABNORMALITY. NO EFFUSION. TECHNOLOGIST: Kelsie MORALES
--- NOTE | 2019-04-12 08:22 | TREADPHA ---
DX: CHEST PAIN Date of Study: 04/09/2019 Ht: 5 2 Wt: 173 lb 7 oz Consulting Physician: SUZANNE MEDICATIONS: TYLENOL, XANAX, ASPIRIN, LOVENOX, LOPRESSOR, NITROSTAT HISTORY: 59 YEAR OLD FEMALE WITH HISTORY OF GERD, NON SMOKER AND NON DRINKER. PHYSICIAL EXAMINATION: RESTING B.P.: 134/74 RESTING H.R.: 58 RESTING EKG: NORMAL PROTOCOL: LEXISCAN EXERCISE TIME: 3:30 B.P. AT PEAK STRESS: 149/71 IMPRESSION: LEXISCAN INJECTION, FOLLOWED BY CARDIOLITE PER PROTOCOL. SEE NUCLEAR MEDICINE REPORT. NO SUPRAVENTRICULAR TACHYCARDIA, VENTRICULAR TACHYCARDIA, PREMATURE VENTRICULAR COMPLEXES OR PREMATURE ATRIAL COMPLEXES. PATIENT REPORTS CHEST PAIN 2/.
== END 2019-04-09 11:34 | disposition home or self-care (01) ==
LOC: ER 21:08 → 2ND 23:18
PROVIDERS: ADMIT Hospitalist; ATTEND Hospitalist
DX: M94.0 Chondrocostal junction syndrome [Tietze] (principal); R07.9 Chest pain, unspecified; K21.9 Gastro-esophageal reflux disease without esophagitis
CPT/HCPCS: 36415; 71045; 78452; 80048; 80061; 80076; 83735; 83880; 84484; 85025; 85610; 93005; 93017; 93306; 99285; A9500; G0378; J1650; J1720; J2785; J7799